=== PATIENT | female | born 1995 | race African-American/Black ===

== ENCOUNTER 2022-02-23 17:46 | Emergency (ER) | payer BC ==
[~2022-02-23] VITALS: Ht 162.6 cm; Wt 60.0 kg
[2022-02-23 18:22] VITALS: BP 124/83
== END 2022-02-23 21:35 | disposition left against medical advice (07) ==
LOC: ER 17:46
DX: R51.9 Headache, unspecified (principal); R05.9 Cough, unspecified; R09.81 Nasal congestion; Z53.21 Procedure and treatment not carried out due to patient leaving prior to being seen by health care provider; Z20.822 Contact with and (suspected) exposure to COVID-19
CPT/HCPCS: 36415